=== PATIENT | female | born 1990 | race Caucasian/White ===

== ENCOUNTER 2017-11-19 00:47 | Emergency (ER) | payer MEDICAID ==
[~2017-11-19] VITALS: Ht 162.6 cm; Wt 61.5 kg
[2017-11-19] MEDS ORDERED: FAMOTIDINE 20MG TABLET PO ONE (03:00)
[2017-11-19] MEDS ORDERED: PREDNISONE 20MG TABLET PO ONE (03:00)
[2017-11-19 05:00] VITALS: BP 112/71
== END 2017-11-19 05:19 | disposition home or self-care (01) ==
LOC: ER 00:47
DX: L50.0 Allergic urticaria (principal); T78.40XA Allergy, unspecified, initial encounter; Z88.0 Allergy status to penicillin
CPT/HCPCS: 81025; 99283; J7512